=== PATIENT | female | born 1995 | race Caucasian/White ===

== ENCOUNTER 2017-11-15 16:41 | Emergency (ER) | payer MEDICAID ==
[~2017-11-15] VITALS: Ht 165.1 cm; Wt 90.7 kg
[2017-11-15 16:49] VITALS: Ht 165.1 cm; Wt 90.7 kg
[2017-11-15] MEDS ORDERED: HYDROCHLOROTH12.5 M1 PO (19:35)
[2017-11-15 19:45] VITALS: BP 114/74
== END 2017-11-15 19:46 | disposition home or self-care (01) ==
LOC: D.ER 16:41 → EDBD 16:41 → D.ER 19:46
DX: R60.9 Edema, unspecified (principal); M79.662 Pain in left lower leg; M79.661 Pain in right lower leg

== ENCOUNTER 2018-08-18 19:08 | Emergency (ER) | payer MEDICAID ==
[~2018-08-18] VITALS: Ht 165.1 cm; Wt 102.7 kg
[~2018-08-18 19:08] MED LIST: HYDROCHLOROTH12.5 M1 PO
[2018-08-18 19:46] VITALS: Ht 165.1 cm; Wt 102.7 kg
[2018-08-18 22:47] LABS: BASOPHILS 0.3 % (0-2); EOSINOPHILS 3.9 % (0-7); HEMATOCRIT 36.6 % (36.0-48.0); HEMOGLOBIN 12.6 g/dL (12-16); IMMATURE GRANULOCYTES 0.2 % (0-5); LYMPHOCYTES 36.6 % (15-50); MCH 28.4 pg (26.0-34.0); MCHC 34.4 g/dL (31.0-37.0); MCV 82.6 fL (80.0-100.0); MEAN PLATELET VOLUME 10.5 fL (7.4-10.4); MONOCYTES 6.9 % (2-11); NEUTROPHILS 52.1 % (40-80); PLATELET COUNT 300 10x3/uL (130-400); RBC 4.43 10x6/uL (4.00-5.40); WBC 8.9 10x3/uL (4.8-10.8)
[2018-08-18 22:54] LABS: ALBUMIN 3.7 g/dL (3.4-5.0); ALKALINE PHOSPHATASE 88 U/L (46-116); ALT (SGPT) 25 U/L (10-68); BILIRUBIN - TOTAL 0.42 mg/dL (0.2-1.3); CALC OSMOLALITY 273 mosm/kg (275-300); CALCIUM 8.9 mg/dL (8.5-10.1); CARBON DIOXIDE 26.1 mmol/L (21.0-32.0); CHLORIDE - SERUM 101 mmol/L (98-107); CREATININE - SERUM 0.8 mg/dL (0.6-1.3); GLUCOSE 108 mg/dL (74-106); POTASSIUM - SERUM 3.6 mmol/L (3.5-5.1); PROTEIN - SERUM 8.4 g/dL (6.4-8.2); SODIUM 137 mmol/L (136-145); UREA NITROGEN 9 mg/dL (7-18); eGFR NON AFRICAN AMERICAN > 90 mL/min (90-120)
[2018-08-18] MEDS ORDERED: VISTARIL25 MG PO (23:59)
[2018-08-19 00:47] VITALS: BP 131/85
== END 2018-08-19 00:49 | disposition home or self-care (01) ==
LOC: D.ER 19:08
PROVIDERS: Emergency Medicine
DX: F41.9 Anxiety disorder, unspecified (principal); R00.2 Palpitations

== ENCOUNTER 2018-09-23 11:11 | Emergency (ER) | payer MEDICAID ==
[~2018-09-23] VITALS: Ht 165.1 cm; Wt 100.0 kg
[~2018-09-23 11:11] MED LIST changes: +VISTARIL25 MG PO
[2018-09-23 11:20] VITALS: Ht 165.1 cm; Wt 100.0 kg
[2018-09-23] MEDS ORDERED: TORADOL10 MG PO (12:21)
[2018-09-23 12:35] VITALS: BP 116/70
== END 2018-09-23 12:35 | disposition home or self-care (01) ==
LOC: D.ER 11:11
DX: M94.0 Chondrocostal junction syndrome [Tietze] (principal)